=== PATIENT | male | born 1970 | race African-American/Black ===

== ENCOUNTER 2018-11-02 09:08 | Emergency (ER) | payer BC ==
[~2018-11-02] VITALS: Ht 193 cm; Wt 114.8 kg
[2018-11-02 09:13] VITALS: Ht 193 cm; Wt 114.8 kg
[2018-11-02 09:27] VITALS: BP 170/90
== END 2018-11-02 10:38 | disposition home or self-care (01) ==
LOC: ED 09:08
DX: S61.211A Laceration without foreign body of left index finger without damage to nail, initial encounter (principal); W26.0XXA Contact with knife, initial encounter; Y93.89 Activity, other specified; Y92.090 Kitchen in other non-institutional residence as the place of occurrence of the external cause; Y99.8 Other external cause status
CPT/HCPCS: 90715